=== PATIENT | male | born 1935 | race Two or more races ===

== ENCOUNTER 2024-03-12 09:59 | Emergency (ER) | payer OTHER ==
[~2024-03-12] VITALS: Ht 157.5 cm; Wt 65.8 kg
[2024-03-12 10:41] VITALS: BP 123/63; O2SAT 96
[2024-03-12] MEDS ORDERED: GUAIFEN/DEXTROMETHORPHAN/PE 10 ML BLIST.PACK PO ONE (10:57)
[2024-03-12] MEDS ORDERED: METHYLPREDNISOLONE SOD SUCC 125 MG VIAL ONE (10:57)
[2024-03-12] MEDS ORDERED: WATER FOR INJ.,BACTERIOSTATIC 30 ML VIAL IJ ONE (10:58)
[2024-03-12] MEDS ORDERED: AZITHROMYCIN 500 MG VIAL IV ONE ×2 (10:58→11:00)
[2024-03-12] MEDS ORDERED: METHYLPREDNISOLONE SOD SUCC 125 MG VIAL IV ONE (11:00)
[2024-03-12] MEDS ORDERED: GUAIFENESIN/DEXTROMETHORPHAN 10ML BLIST.PACK PO ONE (11:00)
[2024-03-12] MEDS ORDERED: LEVALBUTEROL HCL 1.25 MG/3 ML SOLUTION IH SCH (11:00)
[2024-03-12 11:32] LABS: HEMATOCRIT 37.1 % (39.0-48.0); HEMOGLOBIN 12.8 g/dL (13-16.00); MEAN CELL VOLUME 91.6 fL (80.0-100.00); MEAN CORPUSCULAR HEMOGLOBIN 31.6 pg (27.00-32.0); MEAN CORPUSCULAR HGB CONC 34.6 g/dl (32.0-36.0); PLATELET COUNT 193 K/uL (150-450); RED BLOOD COUNT 4.06 M/uL (4.00-6.00); RED CELL DISTRIBUTION WIDTH 14.3 % (11.5-14.5)
[2024-03-12] MEDS ORDERED: LEVALBUTEROL HCL 1.25 MG/3 ML SOLUTION IH ONE (12:55)
[2024-03-12] MEDS ORDERED: OSELTAMIVIR PHOSPHATE 75 MG CAPSULE PO ONE (13:15)
[2024-03-12] MEDS ORDERED: ZITHROMAX500 MG PO (14:48)
[2024-03-12] MEDS ORDERED: MEDROLPACK PO (14:48)
[2024-03-12] MEDS ORDERED: TUSNEL LIQUID178 ML PO (14:48)
[2024-03-12] MEDS ORDERED: XOPENEX CO1.25 MG/0. IH (14:48)
[2024-03-12 15:37] LABS: ABG PH 7.477 (7.35-7.45); ABG PO2 69.1 mmHg (80-100); ABG pCO2 31.4 mmHg (35-45); BASE EXCESS 0.2 mmol/l; BICARBONATE 22.8 mmol/l (23-25); SaO2 94.9 %; Tco2 23.7 mmol/l
[2024-03-12 15:38] LABS: o2 21 %
[2024-03-12 15:39] LABS: allen test SATISFACTORY; puncture site RADIAL RIGHT
== END 2024-03-12 15:01 | disposition home or self-care (01) ==
LOC: ER 10:01
PROVIDERS: General Practice
DX: J06.9 Acute upper respiratory infection, unspecified (principal); R05.9 Cough, unspecified; Z20.822 Contact with and (suspected) exposure to COVID-19; I10 Essential (primary) hypertension
CPT/HCPCS: 36415; 71046; 82803; 96365; 99283; J0456; J3490